=== PATIENT | female | born 1980 | race Caucasian/White ===

== ENCOUNTER 2017-03-30 12:08 | Observation (INO) | payer BC ==
[2017-03-30] MEDS ORDERED: NITROGLYCERIN OINT 1 INCH/GM PACKET TOPICAL STA (12:31)
[2017-03-30] MEDS ORDERED: ASPIRIN 81 MG PO STA (12:31)
--- NOTE | 2017-03-30 12:34 | ED ---
General Adult HPI - General Chief complaint: Chest Pain Stated complaint: Chest Pain Time Seen by Provider: 03/30/17 12:25 Source: patient, RN notes reviewed Mode of arrival: wheelchair Limitations: no limitations - History of Present Illness Initial comments: Patient is a pleasant 36-year-old female presenting to the emergency Department with chest discomfort. Discomfort is currently mild rated 3/10. Discomfort feels like pressure. Patient does have some associated dyspnea. No nausea or diaphoresis today. Patient did have some symptoms 2 days ago. Patient states occasionally she does get somewhat similar discomfort however it has been worse lately. Discomfort is not exertional. No leg pain or leg swelling. - Related Data Home Medications Medication Instructions Recorded Confirmed Albuterol Inhaler [Ventolin Hfa 2 puff INHALATION RT-Q6H PRN 03/30/17 03/30/17 Inhaler] Cholecalciferol [Vitamin D3] 1,000 unit PO DAILY 03/30/17 03/30/17 Fexofenadine HCl [[place] Allergy] 60 mg PO BID PRN 03/30/17 03/30/17 Fluticasone Nasal [place] [Flonase 1 spray EA NOSTRIL DAILY PRN 03/30/17 03/30/17 Nasal [place]] Nadolol [Corgard] 40 mg PO DAILY 03/30/17 03/30/17 Thyroid,Pork [Pep Thyroid] 30 mg PO DAILY 03/30/17 03/30/17 Allergies Allergy/AdvReac Type Severity Reaction Status Date / Time No Known Allergies Allergy Verified 03/30/17 12:19 Review of Systems ROS Statement: Those systems with pertinent positive or pertinent negative responses have been documented in the HPI. ROS Other: All systems not noted in ROS Statement are negative. Constitutional: Denies: fever Eyes: Denies: eye pain ENT: Denies: ear pain Respiratory: Reports: dyspnea. Denies: cough Cardiovascular: Reports: chest pain Endocrine: Denies: fatigue Gastrointestinal: Denies: abdominal pain, vomiting Genitourinary: Denies: dysuria Musculoskeletal: Denies: back pain Skin: Denies: rash Neurological: Denies: weakness Past Medical History Past Medical History: Hypertension Additional Past Medical History / Comment(s): palpitations History of Any Multi-Drug Resistant Organisms: None Reported Past Surgical History: No Surgical Hx Reported Past Psychological History: No Psychological Hx Reported Smoking Status: Current every day smoker Past Alcohol Use History: None Reported Past Drug Use History: None Reported General Exam Limitations: no limitations General appearance: alert, in no apparent distress Eye exam: Present: normal appearance, PERRL ENT exam: Present: normal oropharynx Neck exam: Present: normal inspection Respiratory exam: Present: normal lung sounds bilaterally. Absent: chest wall tenderness Cardiovascular Exam: Present: regular rate, normal rhythm Expanded Peripheral pulses: 2+: Radial (R), Radial (L), Posterior Tibialis (R), Posterior Tibialis (L) GI/Abdominal exam: Present: soft. Absent: tenderness Extremities exam: Present: normal inspection. Absent: pedal edema, calf tenderness Neurological exam: Present: alert Psychiatric exam: Present: normal affect, normal mood Skin exam: Present: normal color Course Vital Signs 03/30/17 03/30/17 03/30/17 12:09 12:43 13:24 Temperature 98.1 F Pulse Rate 90 87 97 Respiratory 20 18 18 Rate Blood Pressure 165/93 126/74 118/72 O2 Sat by Pulse 99 96 96 Oximetry EKG Findings - EKG Comments: EKG Findings:: Normal sinus rhythm 89. CO 138. QRS 76. QT 358. QTC 435. Normal axis. Normal QRS. Normal ST-T. Medical Decision Making - Medical Decision Making Patient reevaluated and resting comfortably in bed. Patient and family updated on results and plan. Case discussed in detail with Dr. Shin, who will admit for Dr. wolfe. - Lab Data Result diagrams: 03/30/17 12:38 03/30/17 12:38 Lab Results 03/30/17 03/30/17 03/30/17 Range/Units 12:38 12:38 12:38 WBC 11.7 H (3.8-10.6) k/uL RBC 4.60 (3.80-5.40) m/uL Hgb 13.6 (11.4-16.0) gm/dL Hct 41.1 (34.0-46.0) % MCV 89.3 (80.0-100.0) fL MCH 29.6 (25.0-35.0) pg MCHC 33.1 (31.0-37.0) g/dL RDW 14.4 (11.5-15.5) % Plt Count 337 (150-450) k/uL Neutrophils % 72 % Lymphocytes % 18 % Monocytes % 5 % Eosinophils % 3 % Basophils % 0 % Neutrophils # 8.4 H (1.3-7.7) k/uL Lymphocytes # 2.1 (1.0-4.8) k/uL Monocytes # 0.6 (0-1.0) k/uL Eosinophils # 0.4 (0-0.7) k/uL Basophils # 0.0 (0-0.2) k/uL PT (9.0-12.0) sec INR (<1.2) APTT (22.0-30.0) sec D-Dimer (<0.60) mg/L FEU Sodium 139 (137-145) mmol/L Potassium 4.1 (3.5-5.1) mmol/L Chloride 108 H (98-107) mmol/L Carbon Dioxide 22 (22-30) mmol/L Anion Gap 9 mmol/L BUN 11 (7-17) mg/dL Creatinine 0.75 (0.52-1.04) mg/dL Est GFR (MDRD) Af Amer >60 (>60 ml/min/1.73 sqM) Est GFR (MDRD) Non-Af >60 (>60 ml/min/1.73 sqM) Glucose 118 H (74-99) mg/dL Calcium 9.3 (8.4-10.2) mg/dL Magnesium 2.0 (1.6-2.3) mg/dL Total Bilirubin 0.3 (0.2-1.3) mg/dL AST 23 (14-36) U/L ALT 34 (9-52) U/L Alkaline Phosphatase 95 (38-126) U/L Total Creatine Kinase 63 (30-135) U/L CK-MB (CK-2) 0.4 (0.0-2.4) ng/mL CK-MB (CK-2) Rel Index 0.6 Troponin I <0.012 (0.000-0.034) ng/mL Total Protein 7.5 (6.3-8.2) g/dL Albumin 4.1 (3.5-5.0) g/dL 03/30/17 Range/Units 12:38 WBC (3.8-10.6) k/uL RBC (3.80-5.40) m/uL Hgb (11.4-16.0) gm/dL Hct (34.0-46.0) % MCV (80.0-100.0) fL MCH (25.0-35.0) pg MCHC (31.0-37.0) g/dL RDW (11.5-15.5) % Plt Count (150-450) k/uL Neutrophils % % Lymphocytes % % Monocytes % % Eosinophils % % Basophils % % Neutrophils # (1.3-7.7) k/uL Lymphocytes # (1.0-4.8) k/uL Monocytes # (0-1.0) k/uL Eosinophils # (0-0.7) k/uL Basophils # (0-0.2) k/uL PT 10.9 (9.0-12.0) sec INR 1.1 (<1.2) APTT 27.7 (22.0-30.0) sec D-Dimer 0.22 (<0.60) mg/L FEU Sodium (137-145) mmol/L Potassium (3.5-5.1) mmol/L Chloride (98-107) mmol/L Carbon Dioxide (22-30) mmol/L Anion Gap mmol/L BUN (7-17) mg/dL Creatinine (0.52-1.04) mg/dL Est GFR (MDRD) Af Amer (>60 ml/min/1.73 sqM) Est GFR (MDRD) Non-Af (>60 ml/min/1.73 sqM) Glucose (74-99) mg/dL Calcium (8.4-10.2) mg/dL Magnesium (1.6-2.3) mg/dL Total Bilirubin (0.2-1.3) mg/dL AST (14-36) U/L ALT (9-52) U/L Alkaline Phosphatase (38-126) U/L Total Creatine Kinase (30-135) U/L CK-MB (CK-2) (0.0-2.4) ng/mL CK-MB (CK-2) Rel Index Troponin I (0.000-0.034) ng/mL Total Protein (6.3-8.2) g/dL Albumin (3.5-5.0) g/dL - Radiology Data Radiology results: image reviewed (Chest x-ray shows no acute process) Disposition Clinical Impression: Chest pain Disposition: ADMITTED IP TO THIS [facility] Referrals: Latasha Hernandez MD [Primary Care Provider] - 1-2 days Decision Time: 14:40
[2017-03-30 12:44] VITALS: RESP 18
[2017-03-30 12:54] LABS: Basophils % (A) 0 %; CH 30.3; Eosinophils # (A) 0.4 k/uL (0-0.7); Eosinophils % (A) 3 %; HCT 41.1 % (34.0-46.0); HGB 13.6 gm/dL (11.4-16.0); Luc # (Auto) 0.18; Luc % (Auto) 2; Lymphocytes # (A) 2.1 k/uL (1.0-4.8); Lymphocytes % (A) 18 %; MCH 29.6 pg (25.0-35.0); MCHC 33.1 g/dL (31.0-37.0); MCV 89.3 fL (80.0-100.0); Mean Platelet Volume 7.9; Monocytes # (A) 0.6 k/uL (0-1.0); Monocytes % (A) 5 %; Neutrophils # (A) 8.4 k/uL (1.3-7.7); Neutrophils % (A) 72 %; RDW 14.4 % (11.5-15.5); WBC 11.7 k/uL (3.8-10.6); WBC (Perox) 11.48
[2017-03-30 13:04] LABS: ALT 34 U/L (9-52); AST 23 U/L (14-36); Alkaline Phosphatase 95 U/L (38-126); Anion Gap 9 mmol/L; Blood Urea Nitrogen 11 mg/dL (7-17); Calcium 9.3 mg/dL (8.4-10.2); Carbon Dioxide 22 mmol/L (22-30); Chloride 108 mmol/L (98-107); Glucose 118 mg/dL (74-99); Non-African American GFR(MDRD) >60 (>60 ml/min/1.73 sqM); Potassium 4.1 mmol/L (3.5-5.1); Sodium 139 mmol/L (137-145); Total Bilirubin 0.3 mg/dL (0.2-1.3); Total Protein 7.5 g/dL (6.3-8.2)
--- NOTE | 2017-03-30 13:06 | XR ---
EXAMINATION TYPE: XR chest 2V DATE OF EXAM: 03/30/2017 COMPARISON: None HISTORY: 36-year-old female with chest pain and shortness of breath TECHNIQUE: PA and lateral views FINDINGS: The cardiomediastinal silhouette, aorta, and pulmonary vasculature are within normal limits. Some str nicol atelectasis in the mid to lower lungs. Otherwise, lungs and pleural spaces are clear. IMPRESSION: No acute cardiopulmonary process.
[2017-03-30 13:15] LABS: INR 1.1 (<1.2); Partial Thromboplastin Time 27.7 sec (22.0-30.0); Prothrombin Time 10.9 sec (9.0-12.0)
[2017-03-30 13:17] LABS: Creatine Kinase 63 U/L (30-135)
[2017-03-30 13:30] LABS: Creatine Kinase MB 0.4 ng/mL (0.0-2.4); Troponin I <0.012 ng/mL (0.000-0.034)
[2017-03-30] MEDS ORDERED: NITROGLYCERIN SL TABS 0.4 MG TAB SUBLINGUAL PRN (14:40)
[2017-03-30 14:50] VITALS: PULSE 89
[2017-03-30 15:29] VITALS: BP 139/94; TEMP 97.9
[2017-03-30] MEDS ORDERED: NITROGLYCERIN OINT 1 INCH/GM PACKET TOPICAL SCH (18:00)
[2017-03-31] MEDS ORDERED: THYROID, PORK 30 MG TAB PO SCH (06:00)
[2017-03-31] MEDS ORDERED: NADOLOL 20 MG TAB PO SCH (09:00)
[2017-03-31] MEDS ORDERED: ASPIRIN 325 MG TAB PO SCH (09:00)
== END 2017-03-30 18:22 | disposition left against medical advice (07) ==
LOC: EC 12:08 → 3OBS 14:40
PROVIDERS: ADMIT Internal Medicine; ATTEND Internal Medicine
DX: R07.89 Other chest pain (principal); Z79.899 Other long term (current) drug therapy; I10 Essential (primary) hypertension; F17.200 Nicotine dependence, unspecified, uncomplicated; R06.00 Dyspnea, unspecified
CPT/HCPCS: 99285; 36415; 93005; 85379; 80053; 82550; 82553; 83735; 84484; 85025; 85610; 85730; 71020; G0378

== ENCOUNTER 2017-11-27 12:22 | Emergency (ER) | payer BC ==
[2017-11-27 12:44] VITALS: TEMP 98.3
[2017-11-27] MEDS ORDERED: RX INFO: IV CONTRAST WAS GIVEN 1 EACH MISC MISCELLANE PRN (13:14)
[2017-11-27] MEDS ORDERED: SODIUM CHLORIDE 0.9% 1,000 ML IV STA (13:14)
[2017-11-27 13:40] LABS: Basophils % (A) 0 %; Eosinophils # (A) 0.2 k/uL (0-0.7); Eosinophils % (A) 2 %; HCT 40.8 % (34.0-46.0); HGB 13.2 gm/dL (11.4-16.0); Lymphocytes # (A) 2.2 k/uL (1.0-4.8); Lymphocytes % (A) 22 %; MCH 28.3 pg (25.0-35.0); MCHC 32.2 g/dL (31.0-37.0); MCV 87.7 fL (80.0-100.0); Mean Platelet Volume 7.4; Monocytes # (A) 0.7 k/uL (0-1.0); Monocytes % (A) 7 %; Neutrophils # (A) 6.8 k/uL (1.3-7.7); Neutrophils % (A) 67 %; Platelet Count 302 k/uL (150-450); RBC 4.66 m/uL (3.80-5.40); RDW 13.2 % (11.5-15.5); WBC 10.1 k/uL (3.8-10.6)
[2017-11-27 13:51] LABS: ALT 34 U/L (9-52); AST 22 U/L (14-36); Albumin 3.8 g/dL (3.5-5.0); Alkaline Phosphatase 77 U/L (38-126); Anion Gap 11 mmol/L; Blood Urea Nitrogen 12 mg/dL (7-17); Calcium 9.3 mg/dL (8.4-10.2); Carbon Dioxide 25 mmol/L (22-30); Chloride 106 mmol/L (98-107); Glucose 88 mg/dL (74-99); Potassium 4.2 mmol/L (3.5-5.1); Sodium 142 mmol/L (137-145); Total Bilirubin 0.3 mg/dL (0.2-1.3); Total Protein 6.6 g/dL (6.3-8.2)
--- NOTE | 2017-11-27 14:22 | CT ---
EXAMINATION TYPE: CT chest w con DATE OF EXAM: 11/27/2017 COMPARISON: NONE HISTORY: Lt rib pain, fall CT DLP: 573.3 mGycm Automated exposure control for dose reduction was used. CONTRAST: CT scan of the chest is performed with IV Contrast, patient injected with 100 mL of Isovue 300. FINDINGS: LUNGS: The lungs are grossly clear, there is no concerning parenchymal mass or nodule identified. T here is no pleural effusion or pneumothorax seen. The tracheobronchial tree is patent. MEDIASTINUM: There are no greater than 1 cm hilar or mediastinal lymph nodes. No pericardial effusi on is seen. AORTA: No additional significant abnormality is seen. OTHER: Low density liver may be due to hepatic steatosis. No evident displaced fracture.. IMPRESSION: No evident acute traumatic injury. Bone scan may be of increased sensitivity to assess f or occult fracture as indicated
[2017-11-27 14:37] VITALS: BP 137/84; PULSE 89; RESP 16
--- NOTE | 2017-11-27 14:37 | ED ---
Recheck HPI - General Chief Complaint: Recheck/Abnormal Lab/Rx Stated Complaint: Fall Time Seen by Provider: 11/27/17 12:47 Source: patient, RN notes reviewed, old records reviewed Mode of arrival: ambulatory Limitations: no limitations - History of Present Illness Initial Comments: 37-year-old female presents emergency Department chief complaint of left sided chest wall pain. She reports she fell rollerblading on Thursday. Patient states that she was evaluated by medics breath. She reports that she requested a CAT scan and was brought here. Patient reports that she fell on Thursday, 5 days prior to arriving here. Patient states that she has had no shortness of breath. She states the pain is worse with taking a deep breath. Pain over the breast tissue. She reports the pain was so severe today that she felt like she needed to be seen. Patient was R the prescribed Tylenol 3 and naproxen from urgent care before arriving here. - Related Data Home Medications Medication Instructions Recorded Confirmed Albuterol Inhaler [Ventolin Hfa 2 puff INHALATION RT-Q6H PRN 03/30/17 11/27/17 Inhaler] Fexofenadine HCl [Catalina Allergy] 60 mg PO DAILY 03/30/17 11/27/17 Fluticasone Nasal [place] [Flonase 1 spray EA NOSTRIL DAILY PRN 03/30/17 11/27/17 Nasal [place]] Nadolol [Corgard] 40 mg PO HS 03/30/17 11/27/17 Thyroid,Pork [[place] Thyroid] 30 mg PO DAILY 03/30/17 11/27/17 Cyanocobalamin (Vitamin B-12) 1,000 mcg PO DAILY 11/27/17 11/27/17 [Vitamin B-12] Ibuprofen [Motrin] 800 mg PO Q6H PRN 11/27/17 11/27/17 Losartan Potassium [Cozaar] 25 mg PO HS 11/27/17 11/27/17 Omeprazole 20 mg PO PC-SUPPER 11/27/17 11/27/17 Thyroid,Pork [[place] Thyroid] 15 mg PO DAILY 11/27/17 11/27/17 Allergies Allergy/AdvReac Type Severity Reaction Status Date / Time No Known Allergies Allergy Verified 11/27/17 12:52 Review of Systems ROS Statement: Those systems with pertinent positive or pertinent negative responses have been documented in the HPI. ROS Other: All systems not noted in ROS Statement are negative. 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 AND WORE A HEART MONITOR FOR 30 DAYS. INSOMNIA. History of Any Multi-Drug Resistant Organisms: None Reported Past Surgical History: No Surgical Hx Reported Additional Past Surgical History / Comment(s): WISDOM TEETH EXTRACTED, DENTAL IMPLANTS Past Anesthesia/Blood Transfusion Reactions: Motion Sickness Additional Past Anesthesia/Blood Transfusion Reaction / Comment(s): CLAUSTERPHOBIC, Past Psychological History: No Psychological Hx Reported Smoking Status: Current some day smoker Past Alcohol Use History: Occasional Past Drug Use History: None Reported - Past Family History Father Family Medical History: No Reported History Mother Additional Family Medical History / Comment(s): CROHNS, EMYPHYSEMA- AGE 52 General Exam - General Exam Comments Initial Comments: Well-appearing 37-year-old female. Alert and oriented. No acute distress. Limitations: no limitations General appearance: alert, in no apparent distress Head exam: Present: atraumatic, normocephalic, normal inspection Eye exam: Present: normal appearance, PERRL, EOMI. Absent: scleral icterus, conjunctival injection, periorbital swelling ENT exam: Present: normal exam, mucous membranes moist Neck exam: Present: normal inspection. Absent: tenderness, meningismus, lymphadenopathy Respiratory exam: Present: normal lung sounds bilaterally, chest wall tenderness , other (Chest wall tenderness over the left side. No bruising noted.). Absent : respiratory distress, wheezes, rales, rhonchi, stridor Cardiovascular Exam: Present: regular rate, normal rhythm, normal heart sounds. Absent: systolic murmur, diastolic murmur, rubs, gallop, clicks GI/Abdominal exam: Present: soft, normal bowel sounds. Absent: distended, tenderness, guarding, rebound, rigid Extremities exam: Present: normal inspection, full ROM, normal capillary refill. Absent: tenderness, pedal edema, joint swelling, calf tenderness Back exam: Present: normal inspection Course Vital Signs 11/27/17 11/27/17 12:39 14:36 Temperature 98.3 F Pulse Rate 80 89 Respiratory 18 16 Rate Blood Pressure 137/88 137/84 O2 Sat by Pulse 99 100 Oximetry Medical Decision Making - Medical Decision Making 29-year-old female presents with left-sided chest wall pain after fall 5 days ago. She states the pain was not significant initially but has been progressively worse. With this history with like to check cardiac enzymes and further lab work. Patient's EKG was reviewed and shows no sinus rhythm. Negative troponin. Negative d-dimer. Labwork was reviewed and within normal limits. CT chest checking for trauma after she had a normal chest x-ray today. Chest is negative for any acute process. Patient informed of all his results. She denies any pain medicine that she needs here. She'll take her prescriptions were filled prior to coming here. Discussed follow-up. All questions answered. Discussed ice and warm compresses over the area. Likely a deep contusion within the breast tissue and possibility of ligamentous tears within the ribs. - Lab Data Result diagrams: 11/27/17 13:25 11/27/17 13:25 Lab Results 11/27/17 11/27/17 11/27/17 Range/Units 13:25 13:25 13:25 WBC 10.1 (3.8-10.6) k/uL RBC 4.66 (3.80-5.40) m/uL Hgb 13.2 (11.4-16.0) gm/dL Hct 40.8 (34.0-46.0) % MCV 87.7 (80.0-100.0) fL MCH 28.3 (25.0-35.0) pg MCHC 32.2 (31.0-37.0) g/dL RDW 13.2 (11.5-15.5) % Plt Count 302 (150-450) k/uL Neutrophils % 67 % Lymphocytes % 22 % Monocytes % 7 % Eosinophils % 2 % Basophils % 0 % Neutrophils # 6.8 (1.3-7.7) k/uL Lymphocytes # 2.2 (1.0-4.8) k/uL Monocytes # 0.7 (0-1.0) k/uL Eosinophils # 0.2 (0-0.7) k/uL Basophils # 0.0 (0-0.2) k/uL D-Dimer (<0.60) mg/L FEU Sodium 142 (137-145) mmol/L Potassium 4.2 (3.5-5.1) mmol/L Chloride 106 (98-107) mmol/L Carbon Dioxide 25 (22-30) mmol/L Anion Gap 11 mmol/L BUN 12 (7-17) mg/dL Creatinine 0.70 (0.52-1.04) mg/dL Est GFR (CKD-EPI)AfAm >90 (>60 ml/min/1.73 sqM) Est GFR (CKD-EPI)NonAf >90 (>60 ml/min/1.73 sqM) Glucose 88 (74-99) mg/dL Calcium 9.3 (8.4-10.2) mg/dL Total Bilirubin 0.3 (0.2-1.3) mg/dL AST 22 (14-36) U/L ALT 34 (9-52) U/L Alkaline Phosphatase 77 (38-126) U/L Troponin I <0.012 (0.000-0.034) ng/mL Total Protein 6.6 (6.3-8.2) g/dL Albumin 3.8 (3.5-5.0) g/dL 11/27/17 Range/Units 13:25 WBC (3.8-10.6) k/uL RBC (3.80-5.40) m/uL Hgb (11.4-16.0) gm/dL Hct (34.0-46.0) % MCV (80.0-100.0) fL MCH (25.0-35.0) pg MCHC (31.0-37.0) g/dL RDW (11.5-15.5) % Plt Count (150-450) k/uL Neutrophils % % Lymphocytes % % Monocytes % % Eosinophils % % Basophils % % Neutrophils # (1.3-7.7) k/uL Lymphocytes # (1.0-4.8) k/uL Monocytes # (0-1.0) k/uL Eosinophils # (0-0.7) k/uL Basophils # (0-0.2) k/uL D-Dimer 0.29 (<0.60) mg/L FEU Sodium (137-145) mmol/L Potassium (3.5-5.1) mmol/L Chloride (98-107) mmol/L Carbon Dioxide (22-30) mmol/L Anion Gap mmol/L BUN (7-17) mg/dL Creatinine (0.52-1.04) mg/dL Est GFR (CKD-EPI)AfAm (>60 ml/min/1.73 sqM) Est GFR (CKD-EPI)NonAf (>60 ml/min/1.73 sqM) Glucose (74-99) mg/dL Calcium (8.4-10.2) mg/dL Total Bilirubin (0.2-1.3) mg/dL AST (14-36) U/L ALT (9-52) U/L Alkaline Phosphatase (38-126) U/L Troponin I (0.000-0.034) ng/mL Total Protein (6.3-8.2) g/dL Albumin (3.5-5.0) g/dL 11/27/17 20:02 EKG performed at 1415 just or sinus rhythm. Normal EKG. Ventricular rate of 87 bpm. MA interval is 158. QRS ration 78. QTQTC 370/454. - Radiology Data Radiology results: report reviewed Patient just is negative for any acute process. Disposition Clinical Impression: Rib pain on left side Disposition: HOME SELF-CARE Condition: Good Instructions: Costochondritis (ED) Additional Instructions: Patient should fill her prescription. He patient can do heat and ice over the area that is sore. Return to emergency department if any alarming signs symptoms occur. Is patient prescribed a controlled substance at d/c from ED?: No If prescribed controlled substance>3 days was MAPS reviewed?: No When asked, does pt state using other controlled substances?: No Referrals: Latasha Hernandez MD [Primary Care Provider] - 1-2 days Time of Disposition: 14:37
== END 2017-11-27 14:50 | disposition home or self-care (01) ==
LOC: EC 12:22
DX: R07.81 Pleurodynia (principal); J45.909 Unspecified asthma, uncomplicated; M79.7 Fibromyalgia; K21.9 Gastro-esophageal reflux disease without esophagitis; I10 Essential (primary) hypertension; E07.9 Disorder of thyroid, unspecified; F17.200 Nicotine dependence, unspecified, uncomplicated; Z79.899 Other long term (current) drug therapy; W19.XXXA Unspecified fall, initial encounter; Y93.89 Activity, other specified
CPT/HCPCS: 36415; 93005; 85379; 80053; 84484; 85025; 71260; 99284; 96360; Q9967

== ENCOUNTER → 2018-06-30 | Outpatient (CLI) | payer BC ==
--- NOTE | 2018-06-30 22:21 | CONS ---
CONSULTATION DATE OF SERVICE: 06/30/2019 37-year-old lady who has been evaluated in Sleep Center for snoring and episodes of tiredness and sleepiness during the day. HISTORY OF PRESENT ILLNESS/SLEEP WAKE EVALUATION: SLEEP SCHEDULE: Patient's usual sleep schedule on working days from 11:00 p.m. to 5:45 or 6:00 am and on weekends from midnight until 8:30 in the morning. FALLING ASLEEP: Sometimes she has problems with falling asleep. No TV in bedroom. DURING SLEEP: She sleeps usually on the side position with her . According to him, she snores and sometimes according to family, she has strange sounds during the sleep. The patient wakes up from sleep once with nocturia. DURING THE DAY/SLEEP WAKE EVALUATION: In the morning, she wakes up tired and sometimes feels tiredness and exhaustion during the day, but Ronda Sleepiness Scale is 2. PAST MEDICAL HISTORY: Positive for MULTIPLE ALLERGY, fibromyalgia, positive antinuclear antibody, Ana's thyroiditis and hypothyroidism. History of nasal polyps. MEDICATIONS: Catalina, thyroid supplement, Nadolol. PAST SURGICAL HISTORY: None. FAMILY HISTORY: Hypertension, heart problems, hyperlipidemia, fibromyalgia, emphysema, snoring, cancer. REVIEW OF SYSTEMS: Tiredness and sleepiness during the day. PHYSICAL EXAM: 77-year-old lady without distress 132/84, HR 78, RR 16, height 63 -1/2 inches, weight 223.8 pounds, body mass index 38.8, temperature 98.2, oxygen saturation room air 97%. Oropharynx moderately low position of soft palate. Wide pillars and deep throat. Neck 16 inches in circumference. Slight restriction of nasal breathing. ABDOMEN: Obese. Neck: Supple, no JVD. Thyroid is not palpable. LUNGS Clear to percussion and to auscultation. Good air exchange. No wheezing or rhonchi. HEART: S1, S2 regular. No murmurs, gallops, or rubs. ABDOMEN: Obese. Soft and nontender. Bowel sounds are present. No organomegaly appreciated. EXTREMITIES No clubbing or cyanosis. PROFILER HAND Awake, alert, and oriented X3. Cranial nerves 2 to 7 intact. There is no fasciculation or atrophy. noted. No focal deficits observed. IMPRESSION: 1. Snoring, awakenings from sleep, small oropharyngeal air space, wide neck, possible obstructive sleep apnea-hypopnea syndrome. 2. Episodes of significant sleepiness. 3. MULTIPLE ALLERGIES. 4. Obesity, body mass index 38.8. 5. History of Ana's thyroiditis, hypothyroidism on thyroid supplement. 6. History of fibromyalgia. 7. History of antinuclear antibody positive. PLAN: 1. Polysomnography for evaluation of patient's breathing during sleep. 2. CPAP/BiPAP titration if sleep study confirms obstructive sleep apnea-hypopnea syndrome. 3. Preferable position during sleep on the side. 4. No driving if patient feels any sleepiness. 5. I will see patient for follow up visit to explain results of testing and following plan. 6. Multiple sleep latency test if the sleep study will be negative for obstructive sleep apnea-hypopnea syndrome. Thank you very much for referring this patient for consultation. Morales Cuba MD, PhD, FAASM Diplomat of [place] [facility] [place] MMODL / IJN: [id number] /
== END | disposition home or self-care (01) ==
LOC: SLEEP 16:25
PROVIDERS: ATTEND Internal Medicine
DX: R06.83 Snoring (principal); T78.40XD Allergy, unspecified, subsequent encounter; E66.9 Obesity, unspecified; E03.9 Hypothyroidism, unspecified; Z68.38 Body mass index [BMI] 38.0-38.9, adult; Z87.39 Personal history of other diseases of the musculoskeletal system and connective tissue; Z79.899 Other long term (current) drug therapy
CPT/HCPCS: 99211

== ENCOUNTER → 2018-10-07 | Outpatient (CLI) | payer OTHER ==
--- NOTE | 2018-10-07 18:52 | PN ---
PROGRESS NOTE DATE OF SERVICE: 10/07/2018 This patient is a 38-year-old lady who has been followed in Sleep Center for treatment of obstructive sleep apnea-hypopnea syndrome. Patient was diagnosed with mild obstructive sleep apnea in July of 2018 with apnea- hypopnea index 7.7. After that the patient was started on treatment with automatic PAP unit which was a requirement of her insurance. She started to use CPAP equipment but had difficulties related to the mask and had difficulties related to pressure. Subsequently the patient stopped using her CPAP equipment and returned it to the [employer]. Today I discussed the results of her sleep studies with the patient. Again, she has mild obstructive sleep apnea-hypopnea syndrome. Sometimes she feels tiredness and sleepiness during the day, although she is not sure that she will be able to fall asleep during the day if she has a chance. Daphne Sleepiness Scale today is 1. We discussed other options for treatment of obstructive sleep apnea-hypopnea syndrome, including oral appliances, but the patient has a history of TMJ problems and that is probably not a good choice for her. MEDICATIONS: 1. Catalina. 2. Nadolol. 3. Thyroid supplement. PHYSICAL EXAMINATION: GENERAL: A pleasant patient in no distress. VITAL SIGNS: BP 136/81, HR 70, RR 16, height 5 feet 3 inches, weight 221, body mass index 39.1, oxygen saturation at room air 96%. HEENT: PERRLA, EOMI. Evaluation of oropharynx showed tongue protrudes midline. Low position of soft palate. Mallampati III. NECK: Supple. No JVD. Thyroid is not palpable. LUNGS: Clear to percussion and to auscultation. Good air exchange. No wheezing or rhonchi. HEART: S1, S2 regular. No murmurs, gallops or rubs. ABDOMEN: Obese. EXTREMITIES: No clubbing or cyanosis. SENIOR SYSTEMS ADMINISTRATOR: Awake, alert, and oriented X3. Cranial nerves 2 to 7 intact. There is no fasciculation or atrophy. noted. No focal deficits observed. IMPRESSION: 1. Mild obstructive sleep apnea-hypopnea syndrome; apnea-hypopnea index 7.7. The patient was not able to tolerate auto PAP treatment. 2. Obesity; body mass index in the range of 39. 3. Asthma. 4. Multiple allergies. 5. History of Ana's thyroiditis; hypothyroidism, on treatment with thyroid supplement. 6. History of fibromyalgia. 7. History of antinuclear antibody positive. PLAN: 1. Aggressive losing weight program. I believe with losing weight the patient's apnea- hypopnea index should improve to normal range. 2. Other options may include doing CPAP titration in the office with the possibility of finding the best mask for her and possibility of using minimal pressure. The patient had awakenings from sleep with automatic machine when the pressure increased. 3. Sleep hygiene with regular time in bed for at least 7-1/2 to 8 hours. 4. The patient may have evaluation by Ear, Nose and Throat physician and consider surgical treatment. 5. Usage of oral appliances probably should be avoided, as patient has a history of TMJ problems. Thank you very much for allowing me to participate in the management of your patient. Sincerely, Morales Cuba MD, PhD, FAASM Diplomat of [place] [employer] [facility] [place] MMODL / IJN: [id number] /
== END | disposition home or self-care (01) ==
LOC: SLEEP 16:50
PROVIDERS: ATTEND Internal Medicine
DX: G47.33 Obstructive sleep apnea (adult) (pediatric) (principal); E66.9 Obesity, unspecified; J45.909 Unspecified asthma, uncomplicated; T78.40XA Allergy, unspecified, initial encounter; E03.9 Hypothyroidism, unspecified; E06.3 Autoimmune thyroiditis; Z91.19 Patient's noncompliance with other medical treatment and regimen; Z68.39 Body mass index [BMI] 39.0-39.9, adult; Z87.39 Personal history of other diseases of the musculoskeletal system and connective tissue; Z79.899 Other long term (current) drug therapy

== ENCOUNTER → 2019-01-19 | Outpatient (CLI) | payer OTHER ==
--- NOTE | 2019-01-21 05:40 | ENG ---
ELECTRONYSTAGMOGRAM REPORT VNG REPORT: VNG INDICATIONS: Dizziness beginning in November 2018 with an ear infection of sudden onset and improving. First 3 weeks, dizziness was constant. Now occurs 2 to 4 episodes a day, lasting 10 to 30 seconds at a time. Can be made worse by turning the head left to right, bending over or head down position or moving the head. Denies any difficulty with hearing. Has pressure in both ears. No tinnitus. VNG FINDINGS: Saccades shows intact peak velocities, accuracies and latencies. Gaze with fixation shows no nystagmus in any of the directions of gaze including centrally with vision denied. Tracking shows break-ups at slower speeds but intact at faster speeds. Static position testing shows no nystagmus in any of the 6 positions with eyes opened and with vision denied. Griffin-Hallpike maneuvers are mildly positive on the right with dizziness reported with the right ear under . Caloric testing could not be completed as the patient started having nausea, vomiting with the calorics. IMPRESSIONS: VNG results are suggestive for right benign positional vertigo. The difference in tracking between slow and faster speeds is difficult to interpret due to the faster speeds being essentially perfect. 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 Uncertain if technical artifact interferes with the slow tracking. No other central features are noted on testing. VNG is somewhat limited due to patient difficulties with caloric testing and she could not continue with that. Clinical correlation necessary. NIK / CRYSTALN: [id number] /
== END ==
LOC: NEUROMAIN 06:45
PROVIDERS: ATTEND Otolaryngology
DX: H55.09 Other forms of nystagmus (principal)
CPT/HCPCS: 92537; 92540

== ENCOUNTER → 2019-02-21 | Outpatient (CLI) | payer OTHER | END | disposition home or self-care (01) | LOC: RADMRIMAIN 15:41 | PROVIDERS: ATTEND Otolaryngology | DX: Z53.9 Procedure and treatment not carried out, unspecified reason (principal) ==

== ENCOUNTER → 2019-02-21 | Outpatient (CLI) | payer OTHER ==
--- NOTE | 2019-02-22 01:39 | MR ---
EXAMINATION TYPE: MR brain and iac wo/w con DATE OF EXAM: 02/21/2019 COMPARISON: None HISTORY: Vertigo, Demyelinating disease TECHNIQUE: Multiplanar, multisequence images of the brain and brainstem is performed without and with IV contras t, utilizing 10 mL intravenous Gadavist . FINDINGS: Ventricles and sulci appear normal. There is no mass effect nor midline shift. There is no sign of intracranial hemorrhage. There are a few scattered white matter high signal small foci at the bobby-white matter junction of both temporal lobes that measure less than 5 mm. Total number is 5. Th ere is a single 6 mm high signal focus in the cortex of the insula right temporal lobe. The brainstem is intact. Corpus callosum appears normal. Sella turcica appears normal. Internal audit ory canals appear normal. The vestibular and acoustic nerves appear normal. There is no evidence of c erebral pontine angle mass. There is no evidence of cortical infarct. Contrast images show no pathologic enhancement. There is normal contrast opacification of the venous sinuses. IMPRESSION: There are a few scattered small nonspecific white matter high signal foci on the FLAIR an d T2 images. Clinical significance is not clear. No posterior fossa abnormality.
== END | disposition home or self-care (01) ==
LOC: RADMRIMAIN 15:34
PROVIDERS: ATTEND Psychiatry & Neurology Neurology
DX: G35 Multiple sclerosis (principal); G46.3 Brain stem stroke syndrome
CPT/HCPCS: 70553; A9585

== ENCOUNTER → 2019-09-23 | Outpatient (CLI) | payer OTHER ==
--- NOTE | 2019-09-26 09:55 | MM ---
Reason for exam: screening (asymptomatic). Last mammogram was performed 4 years and 10 months ago. History: Family history of breast cancer in paternal grandmother. Physical Findings: A clinical breast exam by your physician is recommended on an annual basis and results should be correlated with mammographic findings. MG 3D Screening Mammo W/Cad Bilateral CC and MLO view(s) were taken. Prior study comparison: November 21, 2014, bilateral MG screening mammo w CAD. There are scattered fibroglandular densities. No significant changes when compared with prior studies. ASSESSMENT: Negative, BI-RAD 1 RECOMMENDATION: Routine screening mammogram of both breasts in 1 year.
== END | disposition home or self-care (01) ==
LOC: RADMAMWWP 16:05
PROVIDERS: ATTEND Obstetrics & Gynecology
DX: Z12.31 Encounter for screening mammogram for malignant neoplasm of breast (principal)
CPT/HCPCS: 77063; 77067

== ENCOUNTER → 2020-03-02 | Outpatient (CLI) | payer OTHER | END | disposition home or self-care (01) | LOC: LABWHC1 10:57 | PROVIDERS: ATTEND Family Medicine | DX: Z20.89 Contact with and (suspected) exposure to other communicable diseases (principal) | CPT/HCPCS: U0003; C9803 ==

== ENCOUNTER → 2020-05-18 | Outpatient (CLI) | payer OTHER | END | disposition home or self-care (01) | LOC: LABWHC1 08:38 | PROVIDERS: ATTEND Family Medicine | DX: Z20.89 Contact with and (suspected) exposure to other communicable diseases (principal) | CPT/HCPCS: U0003; C9803 ==

== ENCOUNTER → 2021-01-28 | Outpatient (CLI) | payer OTHER ==
--- NOTE | 2021-01-28 15:56 | US ---
EXAMINATION TYPE: US transvaginal DATE OF EXAM: 01/28/2021 COMPARISON: NONE CLINICAL HISTORY: N92.0 Menorrhagia,D25.9 Leiomyoma of uterus. Patient taking oral contraceptive pill s. C/O heavy periods TECHNIQUE: Transvaginal (TV). Date of LMP: 01/10/2021 EXAM MEASUREMENTS: Uterus: 8.7 x 5.3 x 4.7 cm Endometrial Stripe: 0.3 cm Right Ovary: 2.3 x 1.6 x 1.3 cm cm Left Ovary: 1.9 x 1.4 x 1.3 cm 1. Uterus: Anteverted heterogeneous texture ? anterior mass= 2.4 x 1.9 x 1.8 cm 2. Endometrium: wnl 3. Right Ovary: with follicles, wnl 4. Left Ovary: wnl, with follicles 5. Bilateral Adnexa: wnl 6. Posterior cul-de-sac: wnl IMPRESSION: Heterogeneous uterus with an isoechoic, heterogeneous mass anteriorly measuring up to 2.4 cm, likely a leiomyoma.
== END | disposition home or self-care (01) ==
LOC: RADUSWWP 14:59
PROVIDERS: ATTEND Obstetrics & Gynecology
DX: D25.9 Leiomyoma of uterus, unspecified (principal); N92.0 Excessive and frequent menstruation with regular cycle
CPT/HCPCS: 76830

== ENCOUNTER → 2021-04-22 | Outpatient (CLI) | payer OTHER ==
--- NOTE | 2021-04-23 12:33 | MM ---
Reason for exam: screening (asymptomatic). Last mammogram was performed 1 year and 7 months ago. History: Family history of breast cancer in paternal grandmother. Taking hormonal contraceptives for 10 years. Physical Findings: A clinical breast exam by your physician is recommended on an annual basis and results should be correlated with mammographic findings. MG 3D Screening Mammo W/Cad Bilateral CC and MLO view(s) were taken. Prior study comparison: September 23, 2019, bilateral MG 3d screening mammo w/cad. November 21, 2014, bilateral MG screening mammo w CAD. There are scattered fibroglandular densities. There is no discrete abnormality. ASSESSMENT: Negative, BI-RAD 1 RECOMMENDATION: Routine screening mammogram of both breasts in 1 year.
== END | disposition home or self-care (01) ==
LOC: RADMAMWWP 16:15
PROVIDERS: ATTEND Obstetrics & Gynecology
DX: Z12.31 Encounter for screening mammogram for malignant neoplasm of breast (principal); Z80.3 Family history of malignant neoplasm of breast
CPT/HCPCS: 77063; 77067

== ENCOUNTER → 2021-08-22 | Outpatient (CLI) | payer OTHER ==
[2021-08-23 12:38] LABS: Coronavirus SARS CoV-2 Detected (Not Detected)
== END | disposition home or self-care (01) ==
LOC: LABWHC1 11:34
PROVIDERS: ATTEND Pediatrics
DX: U07.1 COVID-19 (principal)
CPT/HCPCS: 87502; U0003; C9803; U0005

== ENCOUNTER → 2022-05-07 | Outpatient (CLI) | payer OTHER ==
--- NOTE | 2022-05-08 09:16 | MM ---
Reason for Exam: Screening (asymptomatic). Last screening mammogram was performed 12 month(s) ago. Patient History: Menarche at age 8. First Full-Term at age 27. Currently using Hormonal Contraceptives, for 10 years. Paternal grandmother had breast cancer. Last menstrual period: 04/22/2022 Risk Values: Wendi 5 year model risk: 0.8%. NCI Lifetime model risk: 11.9%. Prior Study Comparison: 11/21/2014 Bilateral Screening Mammogram, [facility]. 09/23/2019 Bilateral Screening Mammogram, [facility]. 04/22/2021 Bilateral Screening Mammogram, [facility]. Tissue Density: There are scattered fibroglandular densities. Findings: Analyzed By CAD. There is no suspicious group of microcalcifications in either breast. Asymmetry demonstrated within the inner right breast anterior to middle depth. Overall Assessment: Incomplete: need additional imaging evaluation, BI-RAD 0 Management: Diagnostic Mammogram of the right breast. A clinical breast exam by your physician is recommended on an annual basis and results should be correlated with mammographic findings. [facility] will attempt to contact patient to return for supplemental views and ultrasound if indicated. Electronically signed and approved by: Fermin Harrell D.O.
== END | disposition home or self-care (01) ==
LOC: RADMAMWWP 16:10
PROVIDERS: ATTEND Obstetrics & Gynecology
DX: Z12.31 Encounter for screening mammogram for malignant neoplasm of breast (principal); Z80.3 Family history of malignant neoplasm of breast
CPT/HCPCS: 77063; 77067

== ENCOUNTER → 2022-05-09 | Outpatient (CLI) | payer OTHER ==
--- NOTE | 2022-05-09 11:01 | MM ---
Reason for Exam: Additional evaluation requested from abnormal screening. Last screening mammogram was performed less than 1 month ago. Patient History: Menarche at age 8. First Full-Term at age 27. Currently using Hormonal Contraceptives, for 10 years. Paternal grandmother had breast cancer. Risk Values: Wendi 5 year model risk: 0.8%. NCI Lifetime model risk: 11.9%. Tissue Density: Right: The breast tissue is heterogeneously dense. This may lower the sensitivity of mammography. Findings: Analyzed By CAD. 3 mm nodular density inner upper right breast at the approximate 1:00 position. Six-month follow-up mammography advised. Overall Assessment: Probably benign, BI-RAD 3 Management: Diagnostic Mammogram of the right breast in 6 months. A clinical breast exam by your physician is recommended on an annual basis and results should be correlated with mammographic findings. This exam should not preclude additional follow-up of suspicious palpable abnormalities. Results were given to the patient verbally at the time of exam. Electronically signed and approved by: Meek Brooks M.D. Radiologis
== END | disposition home or self-care (01) ==
LOC: RADMAMWWP 10:16
PROVIDERS: ATTEND Obstetrics & Gynecology
DX: R92.8 Other abnormal and inconclusive findings on diagnostic imaging of breast (principal); Z80.3 Family history of malignant neoplasm of breast
CPT/HCPCS: 77061; 77065

== ENCOUNTER → 2022-10-24 | Outpatient (CLI) | payer OTHER ==
--- NOTE | 2022-10-24 14:42 | MM ---
Reason for Exam: Clinical finding. Last screening mammogram was performed 6 month(s) ago. Indicated Problems: Lump or thickening of the right side. Patient History: Menarche at age 8. First Full-Term at age 27. Currently using Hormonal Contraceptives, for 10 years. Paternal grandmother had breast cancer. Last menstrual period: 10/17/2022 Risk Values: Wendi 5 year model risk: 0.9%. NCI Lifetime model risk: 11.8%. Prior Study Comparison: 04/22/2021 Bilateral Screening Mammogram, [facility]. 05/07/2022 Bilateral MG 3D screening mammo w/cad, [facility]. 05/09/2022 Right MG 3D work up w/cad RT, [facility]. Tissue Density: Right: There are scattered fibroglandular densities. Findings: Analyzed By CAD. Nodular density seen on right cc view only in the posterior aspect 6.5 cm from the nipple measuring approximately 4-5 mm. This is not significantly changed from prior. Asymmetry within the right breast 6.6 cm from the nipple the medial aspect measuring approximately 4-5 mm. This is not significantly changed from prior. Not seen on other views. Overall Assessment: Incomplete: need additional imaging evaluation, BI-RAD 0 Management: Diagnostic Breast Ultrasound of both breasts. A clinical breast exam by your physician is recommended on an annual basis and results should be correlated with mammographic findings. This exam should not preclude additional follow-up of suspicious palpable abnormalities. Results were given to the patient verbally at the time of exam. Electronically signed and approved by: Michael Lopez DO
--- NOTE | 2022-10-24 15:11 | USB ---
Patient History: Menarche at age 8. First Full-Term at age 27. Currently using Hormonal Contraceptives, for 10 years. Paternal grandmother had breast cancer. Risk Values: Wendi 5 year model risk: 0.9%. NCI Lifetime model risk: 11.8%. Technique: Method: Targeted. Prior Study Comparison: 04/22/2021 Bilateral Screening Mammogram, [facility]. 05/07/2022 Bilateral MG 3D screening mammo w/cad, [facility]. 05/09/2022 Right MG 3D work up w/cad RT, [facility]. Findings: The upper inner quadrant of the right breast, the axilla of the right breast and the retroareolar of the right breast were scanned. Imaged: Ultrasound imaging of: Area of concern, retroareolar region and axilla. Tiny cyst measuring up to 4 mm at 1:00 7 cm from nipple correlate with finding on mammogram. No evidence for organizing fluid collection or mass. Overall Assessment: Benign, BI-RAD 2 Management: Screening Mammogram of both breasts in 1 year. A clinical breast exam by your physician is recommended on an annual basis and results should be correlated with mammographic findings. This exam should not preclude additional follow-up of suspicious palpable abnormalities. Results were given to the patient verbally at the time of exam. Electronically signed and approved by: Michael Lopez DO
== END | disposition home or self-care (01) ==
LOC: RADMAMWWP 14:05
PROVIDERS: ATTEND Obstetrics & Gynecology
DX: N63.10 Unspecified lump in the right breast, unspecified quadrant (principal); R92.8 Other abnormal and inconclusive findings on diagnostic imaging of breast; Z80.3 Family history of malignant neoplasm of breast
CPT/HCPCS: 77061; 77065

== ENCOUNTER → 2023-02-11 | Outpatient (CLI) | payer OTHER ==
--- NOTE | 2023-02-11 08:55 | CT ---
EXAMINATION TYPE: CT sinus wo con DATE OF EXAM: 02/11/2023 COMPARISON: None HISTORY: Chronic sinusitis, unspecified CT DLP: 569.10 mGycm CONTRAST: 0 mL of Isovue 300 The paranasal sinuses are examined in the axial plane at 2 mm thick sections. Reconstructed images i n the coronal plane were obtained. There is mild dental amalgam scatter artifact The maxillary sinuses are clear. The ethmoid air cells are clear. The sphenoid sinuses are clear. The frontal sinuses are clear. The septum is evaluated. There is septal deviation to the left. Left septal spur is noted. The ostiomeatal units are patent. Some mild hyperostosis frontalis internus is present, a normal variant. IMPRESSIONS: 1. No suspicious changes to suggest acute or chronic sinusitis.
== END | disposition home or self-care (01) ==
LOC: RADCTMAIN 07:04
PROVIDERS: ATTEND Otolaryngology
DX: J32.9 Chronic sinusitis, unspecified (principal)
CPT/HCPCS: 70486

== ENCOUNTER 2023-05-20 07:53 | Day surgery (SDC) | payer OTHER ==
[~2023-05-20 07:53] MED LIST: FAMOTIDINE 20 MG/2 ML VIAL IV PRN; HYDROmorphone 0.5 MG/0.5 ML SYRINGE IVP PRN; LACTATED RINGERS 1,000 ML IV SCH; LIDOCAINE 1% (10MG/ML) FOR IV START INTRADERMA PRN; ONDANSETRON 4 MG/2 ML VIAL IVP PRN
[2023-05-20] MEDS: OXYMETAZOLINE 0.05% NASL SPRAY 1 SPRAY BOTTLE EA NOSTRIL PRN ×5 (08:40→09:05)
[2023-05-20] MEDS ORDERED: DEXAMETHASONE SOD PHOSPHATE 4 MG/ML 1 ML VIAL IVP ONE (08:54)
[2023-05-20] MEDS ORDERED: METOCLOPRAMIDE 5 MG/ML 2 ML VIAL ONE (09:01)
[2023-05-20] MEDS ORDERED: diphenhydrAMINE 50 MG/ML 1 ML VIAL ONE (09:01)
[2023-05-20] MEDS ORDERED: METOCLOPRAMIDE 5 MG/ML 2 ML VIAL IVP ONE (09:05)
[2023-05-20] MEDS ORDERED: diphenhydrAMINE 50 MG/ML 1 ML VIAL IVP ONE (09:06)
[2023-05-20] MEDS ORDERED: MIDAZOLAM 2 MG/2 ML VIAL ONE (09:29)
[2023-05-20] MEDS ORDERED: fentaNYL (PF) 50 MCG/ML 2 ML AMP ONE (09:29)
[2023-05-20] MEDS ORDERED: LIDOCAINE 1% INJ 10MG/ML (20 ML MDV) ONE (09:29)
[2023-05-20] MEDS ORDERED: SUCCINYLCHOLINE CHLORIDE 200 MG/10 ML VIAL IV ONE (09:29)
[2023-05-20] MEDS ORDERED: PROPOFOL 10 MG/ML 20 ML VIAL IV ONE (09:29)
[2023-05-20] MEDS ORDERED: LIDOCAINE 2%-EPI 1:100,000 20 ML VIAL SUBMUCOSAL ONE (09:43)
[2023-05-20] MEDS ORDERED: BACITRACIN ZINC 500 UNIT/GM OINT 28.4 GM TUBE TOPICAL ONE (10:02)
[2023-05-20] MEDS ORDERED: LACTATED RINGERS 1,000 ML IV ONE (10:09)
--- NOTE | 2023-05-20 10:21 | P.OP ---
Date of Procedure: 05/20/23 Preoperative Diagnosis: Deviated nasal septum Inferior turbinate hypertrophy Chronic sinusitis Postoperative Diagnosis: Same Procedure(s) Performed: Septoplasty Outfractured and submucous resection inferior turbinates Bilateral endoscopic sinus surgery including bilateral maxillary antrostomy Anesthesia: AYUSH Surgeon: Noble Woods Estimated Blood Loss (ml): 5 Pathology: other (Nasal septal bone and cartilage and sinus contents) Condition: stable Disposition: PACU Indications for Procedure: This 42-year-old white female who has difficulties with chronic nasal airway obstruction congestion and recurrent sinusitis Operative Findings: Nasal septum deviated to the left obstructing approximately 90% of the nasal airway including a large septal spur posteriorly, anterior septal mucosa bilaterally quite thin and therefore cartilage was left intact, inferior turbinate hypertrophy bilaterally maxillary ostia were obstructed bilaterally. Minimal mucosal thickening in the maxillary sinuses bilateral Description of Procedure: The patient was brought into the operative suite and placed in a supine position. The patient underwent induction of general anesthesia with oral endotracheal intubation without difficulty. The patient was prepped and draped in the usual aseptic fashion with the orbits in the operating field for monitoring to the case and the computed tomography scan was on the computer screen for review throughout the case. 1% lidocaine with 1 :100,000 epinephrine was infused submucosally into both sides of the nasal septum as well as the lateral nasal wall and anterior tips of the middle turbinates. While this was taking vasoconstrictive effect the inferior turbinates were infractured with [place] elevator and partial submucous resection of the inferior turbinates was performed with a portion of the submucosal soft tissue and the inferior turbinate bone removed with Coblation device. The inferior turbinates were then outfractured with the [place] elevator. A left hemitransfixion incision was then made with the mucoperichondrial and mucoperiosteal flap on the left elevated. The bony cartilaginous junction was disarticulated and the mucoperiosteal flap on the right was elevated. Bony nasal septal deformities were removed with Alan forceps - the nasal septal mucosa anteriorly was quite thin bilaterally and therefore the cartilage was intact.. Checking intranasally this corrected the nasoseptal deformities and the hemitransfixion incision was closed with a running 4-0 chromic suture. Full 0 endoscopic examination is performed bilaterally. Beginning on the left, the middle turbinate was medialized. The maxillary ostium was located with a ballpoint probe and an infundibulotomy was performed followed by uncinectomy. The maxillary antrostomy was enlarged at the expense of the anterior and posterior fontanelle taking care anteriorly not to injure the lacrimal bone. The maxillary sinus was evaluated with 30 and 70 endoscope. Attention was then turned to the right where the procedures were followed as they had been on the left including medialization middle turbinate infundibulotomy uncinectomy maxillary antrostomy with exploration of the maxillary sinus [Xerogel nasal dressing was placed in the middle meatus bilaterally under direct visualization]. Bilateral Sweeney airway splints coated with bacitracin ointment were placed and sutured transseptally with a 4-0 nylon suture. The patient was suctioned in oral gastric fashion and was allowed to emerge from general anesthesia having tolerated procedure well and was extubated in the operating suite and transferred to the postoperative recovery area in satisfactory condition.
[2023-05-20 10:41] VITALS: TEMP 97.9
[2023-05-20] MEDS ORDERED: METOPROLOL TARTRATE 5 MG/5 ML VIAL IVP ONE ×2 (10:46→11:13)
[2023-05-20] MEDS ORDERED: hydrALAZINE HCL 20 MG/ML 1 ML VIAL IV ONE (11:12)
[2023-05-20 12:20] VITALS: RESP 14
[2023-05-20 12:21] VITALS: BP 127/83; PULSE 102
== END 2023-05-20 12:50 | disposition home or self-care (01) ==
LOC: OR 07:53
PROVIDERS: ATTEND Otolaryngology
DX: J32.9 Chronic sinusitis, unspecified (principal); J34.2 Deviated nasal septum; J34.3 Hypertrophy of nasal turbinates; J45.909 Unspecified asthma, uncomplicated; I10 Essential (primary) hypertension; I49.9 Cardiac arrhythmia, unspecified; E07.9 Disorder of thyroid, unspecified; K21.9 Gastro-esophageal reflux disease without esophagitis; M79.7 Fibromyalgia; F41.9 Anxiety disorder, unspecified; Z73.3 Stress, not elsewhere classified; Z86.69 Personal history of other diseases of the nervous system and sense organs; Z87.891 Personal history of nicotine dependence; Z79.51 Long term (current) use of inhaled steroids; Z79.891 Long term (current) use of opiate analgesic; Z79.890 Hormone replacement therapy; Z79.899 Other long term (current) drug therapy
CPT/HCPCS: 30520; 31256; 81025; 88305; 88300; J2250; J0330; J0360; J1200; J1100; J2765; J2405; J2001; J3010; J3490; J2704; J1170

== ENCOUNTER → 2023-11-03 | Outpatient (CLI) | payer BC ==
--- NOTE | 2023-11-05 20:03 | MM ---
Reason for Exam: Screening (asymptomatic). Last mammogram was performed 1 year(s) and 6 month(s) ago. Patient History: Menarche at age 8. First Full-Term at age 27. Currently using Hormonal Contraceptives, for 10 years. Paternal grandmother had breast cancer. Risk Values: Wendi 5 year model risk: 0.9%. NCI Lifetime model risk: 11.7%. Prior Study Comparison: 05/07/2022 Bilateral MG 3D screening mammo w/cad, [facility]. 05/09/2022 Right MG 3D work up w/cad RT, [facility]. 10/24/2022 Right MG 3D diag mammo w/cad RT, [facility]. Tissue Density: There are scattered areas of fibroglandular density. Findings: Analyzed By CAD. Unchanged central nodularity on the right MLO view. There is no suspicious group of microcalcifications or new suspicious mass in either breast. Overall Assessment: Benign, BI-RAD 2 Management: Screening Mammogram of both breasts in 1 year. . Patient should continue monthly self-breast exams. A clinical breast exam by your physician is recommended on an annual basis. This exam should not preclude additional follow-up of suspicious palpable abnormalities. Note on Wendi scores and lifetime risk: 1. A Wendi score greater than 3% is considered moderate risk. If this is the case, consider specialist referral to assess eligibility for a risk reducing agent. 2. If overall lifetime risk for the development of breast cancer is 20% or higher, the patient may qualify for future screening with alternating mammogram and breast MRI. Electronically signed and approved by: Tadeo Bautista M.D. Radiologist
== END | disposition home or self-care (01) ==
LOC: RADMAMWWP 16:38
PROVIDERS: ATTEND Obstetrics & Gynecology
DX: Z12.31 Encounter for screening mammogram for malignant neoplasm of breast (principal); Z80.3 Family history of malignant neoplasm of breast
CPT/HCPCS: 77063; 77067